=== PATIENT | male | born 1985 | race Caucasian/White ===

== ENCOUNTER 2020-03-01 21:05 | Observation (INO) | payer OTHER ==
[2020-03-01] MEDS ORDERED: Aspirin 325 MG TAB ONE (21:11)
[2020-03-01] MEDS ORDERED: Nitroglycerin 0.4 MG TAB 1 EACH ONE (21:11)
[2020-03-01] MEDS ORDERED: Lorazepam 2 MG/ML VIAL ONE (21:18)
--- NOTE | 2020-03-01 21:45 | RAD ---
Portable frontal chest radiograph: 03/01/2020 COMPARISON: None HISTORY: Chest pain FINDINGS: Lungs are clear. Heart and mediastinal contours appear within normal limits. IMPRESSION: No acute findings.
[2020-03-01 21:48] LABS: Hemoglobin 17.1 g/dL (14.0-18.0); Mean Corpuscular HGB CONC 35.9 g/dL (32.0-36.0); Mean Corpuscular Hemoglobin 32.3 pg (27.0-31.0); Mean Corpuscular Volume 90.2 fL (78.0-98.0); RBC Distribution Width 11.3 % (11.5-14.5); Red Blood Cell (RBC) Count 5.27 mill/uL (4.70-6.10); White Blood Cell (WBC) Count 8.1 thou/uL (4.8-10.8)
[2020-03-01 21:49] LABS: Mean Platelet Volume 7.3 fL (7.4-10.4); Platelet Count 213 thou/uL (130-400)
[2020-03-01 21:50] LABS: #Lymphocytes 1.6 thou/uL (1.20-3.40); #Monocytes 0.6 thou/uL (0.11-0.59); #Neutrophils 5.8 thou/uL (1.40-6.50); %Basophils 0.4 % (0.0-1.0); %Eosinophils 0.2 % (0.0-10.0); %Lymphocytes 19.7 % (21.0-51.0); %Monocytes 7.9 % (0.0-10.0); %Neutrophils 71.8 % (42.0-75.0); D-Dimer Test 0.29 *mcg/mL (0.27-0.43)
[2020-03-01 22:15] LABS: PTT 21.8 sec (22.9-36.1)
[2020-03-01 22:59] LABS: ALT (SGPT) 15 U/L (8-55); AST (SGOT) 18 U/L (5-34); Alkaline Phosphatase 53 U/L (40-110); Anion Gap 21 mmol/L (10-20); BUN (Urea Nitrogen) 13 mg/dL (8.9-20.6); Bilirubin, Total 1.6 mg/dL (0.2-1.2); Calc. Creatinine Clearance 0 mL/min (70-130); Calcium 10.2 mg/dL (7.8-10.44); Carbon Dioxide 19 mmol/L (22-29); Chloride 102 mmol/L (98-107); Estimated GFR-MDRD 51; Globulin 2.6 g/dL (2.4-3.5); Glucose 101 mg/dL (70-105); Potassium 3.1 mmol/L (3.5-5.1); Protein, Total 7.6 g/dL (6.0-8.3); Sodium 139 mmol/L (136-145)
[2020-03-01] MEDS ORDERED: Potassium Chloride 20 MEQ TAB ONE ×2 (23:41→23:42)
[2020-03-02] MEDS ORDERED: Ondansetron PF 4 MG/2 ML Vial ONE (00:33)
[2020-03-02 01:01] VITALS: BMI 33.5
[2020-03-02 01:24] LABS: Troponin I 0.012 ng/mL (< 0.028)
[2020-03-02] MEDS ORDERED: Morphine 2 MG/ML VIAL ONE (06:09)
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
[2020-03-02] MEDS ORDERED: Morphine 2 MG/ML SYRINGE ONE (06:16)
[2020-03-02 07:08] LABS: Troponin I 0.023 ng/mL (< 0.028)
[2020-03-02] MEDS ORDERED: Morphine 2 MG/ML VIAL SLOW IVP PRN (08:11)
[2020-03-02] MEDS ORDERED: Sodium Chloride 0.9% 1,000 ML IV SCH (08:15)
[2020-03-02 09:12] LABS: ALT (SGPT) 12 U/L (8-55); AST (SGOT) 15 U/L (5-34); Albumin 4.2 g/dL (3.5-5.0); Alkaline Phosphatase 44 U/L (40-110); Anion Gap 14 mmol/L (10-20); BUN (Urea Nitrogen) 13 mg/dL (8.9-20.6); Bilirubin, Total 1.2 mg/dL (0.2-1.2); CK (CPK) 135 U/L (30-200); Calc. Creatinine Clearance 148 mL/min (70-130); Calcium 9.1 mg/dL (7.8-10.44); Carbon Dioxide 24 mmol/L (22-29); Chloride 105 mmol/L (98-107); Estimated GFR-MDRD 70; Globulin 1.9 g/dL (2.4-3.5); Glucose 86 mg/dL (70-105); Potassium 3.8 mmol/L (3.5-5.1); Protein, Total 6.1 g/dL (6.0-8.3); Sodium 139 mmol/L (136-145)
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
[2020-03-02 12:23] VITALS: TEMP 98.2
--- NOTE | 2020-03-02 12:31 | NM ---
EXAM: CARDIAC SPECT HISTORY: Chest pain TECHNIQUE: A myocardial perfusion scan was performed using the single isotope 1 day protocol with kori hnetium 99m sestamibi. [10 mCi] was injected intravenously for the rest exam followed by 30 mCi for the stress study. Exercise stress was monitored and interpreted by Dr. Gomez FINDINGS: Homogeneous tracer distribution is seen in the myocardial segments on stress and rest image s without fixed or reversible defects. Gated SPECT LVEF: 61% Wall motion exam: Normal IMPRESSION: Normal myocardial perfusion scan
[2020-03-02 15:26] VITALS: BP 140/79
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
--- NOTE | 2020-03-07 14:06 | STRESS ---
Acquisition Time: 2020-03-02 10:45:05 Total Exercise Time: 00:10:00 Test Indications: CHEST PAIN Medications: Protocol: JORGE Max HR: 181 BPM 96% of Pred: 188 BPM Max BP: 142/060 mmHG Max Work Load: 13.4 METS RESTING ECG: SINUS BRADYCARDIA AT 53 BPM SYMPTOMS: NONE NORMAL BP RESPONSE ECTOPY: RARE PVC'S IN RECOVERY ECG STRESS: NO SIGNIFICANT CHANGES INTERPRETATION: NEGATIVE GXT/AWAIT NUCLEAR IMAGES FOR DEFINITIVE DIAGNOSIS Confirmed by GERARD DAVENPORT M.D. ([id number] on 03/07/2020 2:05:45 PM Referred By: MD Loy TRINIDAD Confirmed By:GERARD DAVENPORT M.D.
== END 2020-03-02 15:10 | disposition home or self-care (01) ==
LOC: ERS 21:05 → 2SW 23:43
PROVIDERS: ADMIT Internal Medicine; ATTEND Internal Medicine
DX: R07.89 Other chest pain (principal); F32.9 Major depressive disorder, single episode, unspecified; F41.9 Anxiety disorder, unspecified; F17.220 Nicotine dependence, chewing tobacco, uncomplicated; Z79.899 Other long term (current) drug therapy
CPT/HCPCS: 36415; 36416; 71045; 78452; 80053; 82550; 84484; 85025; 85379; 85730; 93005; 93017; 96361; 96374; A9500; G0378; J2060; J2270; J2405

== ENCOUNTER 2022-07-04 09:20 | Emergency (ER) | payer OTHER ==
[2022-07-04] MEDS ORDERED: Ketorolac Tromethamine 30 MG/ML VIAL ONE (10:28)
== END 2022-07-04 11:07 | disposition home or self-care (01) ==
LOC: ERS 09:20
DX: S93.492A Sprain of other ligament of left ankle, initial encounter (principal); F17.220 Nicotine dependence, chewing tobacco, uncomplicated; X50.1XXA Overexertion from prolonged static or awkward postures, initial encounter
CPT/HCPCS: 96372; J1885

== ENCOUNTER 2023-10-28 07:32 | Outpatient (CLI) | payer BC | END 2023-10-28 07:33 | disposition home or self-care (01) | LOC: BICMRI 07:32 | PROVIDERS: ATTEND Nurse Practitioner Family | DX: M47.26 Other spondylosis with radiculopathy, lumbar region (principal) | CPT/HCPCS: 72148 ==

== ENCOUNTER 2025-06-14 12:45 | Day surgery (SDC) | payer BC ==
[2025-06-08 13:12] VITALS: BMI 42.3
[2025-06-14] MEDS ORDERED: PROPOFOL 20 ML ONE ×3 (13:29→13:51)
[2025-06-14] MEDS ORDERED: Lidocaine 1% PF 5 ML VIAL ONE (13:30)
== END 2025-06-14 14:55 | disposition home or self-care (01) ==
LOC: SDC 12:45
PROVIDERS: ATTEND Surgery
PROC: 0DBK8ZX Excision of Ascending Colon, Via Natural or Artificial Opening Endoscopic, Diagnostic (ICD-10-PCS; principal; 2025-06-14)
PROC: 0DBL8ZX Excision of Transverse Colon, Via Natural or Artificial Opening Endoscopic, Diagnostic (ICD-10-PCS; principal; 2025-06-14)
PROC: 0DB58ZX Excision of Esophagus, Via Natural or Artificial Opening Endoscopic, Diagnostic (ICD-10-PCS; principal; 2025-06-14)
DX: R10.32 Left lower quadrant pain (principal); R19.7 Diarrhea, unspecified; K20.90 Esophagitis, unspecified without bleeding; K29.70 Gastritis, unspecified, without bleeding; K21.9 Gastro-esophageal reflux disease without esophagitis; R14.0 Abdominal distension (gaseous); I10 Essential (primary) hypertension; F17.290 Nicotine dependence, other tobacco product, uncomplicated; Z90.89 Acquired absence of other organs
CPT/HCPCS: 88305; 88342; J2704